=== PATIENT | male | born 1965 | race Caucasian/White ===

== ENCOUNTER 2017-08-29 11:51 | Observation (INO) | payer BC ==
[~2017-08-29] VITALS: Ht 177.8 cm; Wt 63.6 kg
[2017-08-29 11:53] VITALS: BP 141/79; PULSE 79; RESP 14; TEMP 98.6; O2SAT 97
[2017-08-29] MEDS ORDERED: SODIUM CHLORIDE 0.9% FLUSH 10 ML FLUSH IVF PRN (12:30)
[2017-08-29] MEDS ORDERED: SODIUM CHLOR 0.9% 1000 ML INJ 1,000 ML IV ONE (12:30)
[2017-08-29] MEDS ORDERED: PRIL20TA2 (12:54)
[2017-08-29] MEDS ORDERED: FLUT1INH INH (12:54)
[2017-08-29 13:23] LABS: AUTOMATED NEUTROPHIL # 3.2 TH/MM3 (1.8-7.7); BASOPHIL % 0.7 % (0.0-2.0); EOSINOPHIL # 0.1 TH/MM3 (0-0.4); EOSINOPHIL % 1.3 % (0.0-4.0); HEMATOCRIT 40.1 % (39.0-51.0); HEMOGLOBIN 13.8 GM/DL (13.0-17.0); LYMPH % 19.3 % (9.0-44.0); LYMPHOCYTE # 0.9 TH/MM3 (1.0-4.8); MEAN CELL VOLUME 89.5 FL (80.0-100.0); MEAN CORPUSCULAR HEMOGLOBIN 30.9 PG (27.0-34.0); MEAN CORPUSCULAR HGB CONC 34.5 % (32.0-36.0); MEAN PLATELET VOLUME 9.2 FL (7.0-11.0); MONO % 11.4 % (0.0-8.0); MONOCYTE # 0.5 TH/MM3 (0-0.9); NEUT % 67.3 % (16.0-70.0); PLATELET COUNT 206 TH/MM3 (150-450); RED BLOOD COUNT 4.48 MIL/MM3 (4.50-5.90); WHITE BLOOD COUNT 4.8 TH/MM3 (4.0-11.0)
[2017-08-29 13:36] LABS: PROTHROMBIN TIME - PATIENT 10.1 SEC (9.8-11.6)
[2017-08-29 13:41] LABS: ALBUMIN 4.2 GM/DL (3.4-5.0); ALT (GPT) 23 U/L (12-78); AST (GOT) 33 U/L (15-37); BICARBONATE 28.4 MEQ/L (21.0-32.0); BLOOD UREA NITROGEN 10 MG/DL (7-18); CALCIUM 8.9 MG/DL (8.5-10.1); CHLORIDE 99 MEQ/L (98-107); CREATININE 0.71 MG/DL (0.60-1.30); GLOMERULAR FILTRATION RATE 117 ML/MIN (>89); GLUCOSE,RANDOM 75 MG/DL (74-106); SODIUM (NA) 135 MEQ/L (136-145)
[2017-08-29 13:43] LABS: ALKALINE PHOSPHATASE 58 U/L (45-117); TOTAL BILIRUBIN ADULT 0.7 MG/DL (0.2-1.0); TOTAL PROTEIN 7.4 GM/DL (6.4-8.2)
--- NOTE | 2017-08-29 14:57 | RADRPT ---
EXAM DATE/TIME: 08/29/2017 13:58 [facility] COMPARISON: No previous studies available for comparison. INDICATIONS : Left hemianopia with bilateral vision loss. MEDICAL HISTORY : Chronic obstructive pulmonary disease. GERD SURGICAL HISTORY : Tonsillectomy. Hernia sx. ENCOUNTER: Initial ACUITY: 1 day PAIN SCORE: 2/10 LOCATION: Bilateral orbits TECHNIQUE: Multiplanar, multisequence MRI of the brain was performed without contrast. FINDINGS: CEREBRUM: The ventricles are normal for age. No evidence of midline shift, mass lesion, hemorrhage or acute in farction. No extraaxial fluid collections are seen. The pituitary gland and suprasellar cistern are normal in configuration. WHITE MATTER: No significant signal abnormalities are seen in the white matter. POSTERIOR FOSSA: The cerebellum and brainstem are intact. The 4th ventricle is midline. The cerebellopontine angle is unremarkable. The cerebellar tonsils are normal in position. DIFFUSION IMAGING: No focal areas of restricted diffusion are seen. No evidence of acute infarction. EXTRACRANIAL: The visualized portions of the orbits and paranasal sinuses are unremarkable. CONCLUSION: 1. Negative examination. Miah Forte MD on August 29, 2017 at 14:52 Board Certified Radiologist. This report was verified electronically.
--- NOTE | 2017-08-29 15:23 | PD ---
HPI Chief Complaint: Syncope/Near-Syncope Time Seen by Provider: 12:20 Travel History International Travel<30 days: No Contact w/Intl Traveler<30days: No Traveled to known affect area: No History of Present Illness HPI 52-year-old male presents emergency department complaining of left eye visual changes that started approximately 1030 this morning. States that he was sitting talking to his boss when this happened. Patient states that the episode lasted approximately 2 hours that was preceded by 'blurred vision' bilaterally. He describes this left eye visual change as a vertical line with black peripheral vision. States this has never happened before, denies headache or head trauma. States he may have COPD and takes Breo daily. He denies any other medical issues. Denies history of heart attack or stroke. He does wear corrective lenses. PFSH Past Medical History COPD: Yes Diabetes: No GERD: Yes Respiratory: Yes Tetanus Vaccination: > 5 Years Influenza Vaccination: No Past Surgical History Tonsillectomy: Yes Social History Alcohol Use: Yes (DAILY) Tobacco Use: Yes (1 PPD) Substance Use: No Allergies-Medications (Allergen,Severity, Reaction): Coded Allergies: No Known Allergies (Unverified , 08/29/17) Reported Meds & Prescriptions Reported Meds & Active Scripts Active Reported Prilosec (Omeprazole Magnesium) 20 Mg Tab Breo Ellipta Inh (Fluticasone/Vilanterol) 100-25 Mcg/Act Inh 1 Puff INH DAILY Use daily at the same time. Review of Systems Except as stated in HPI: all other systems reviewed are Neg Physical Exam Narrative GENERAL: Well-developed well-nourished no apparent distress SKIN: Focused skin assessment warm/dry. HEAD: Atraumatic. Normocephalic. EYES: Pupils equal and round. No scleral icterus. No injection or drainage. Mid gaze 2 beat horizontal nystagmus with EOMI to left and right ENT: No nasal bleeding or discharge. Mucous membranes pink and moist. NECK: Trachea midline. No JVD. CARDIOVASCULAR: Regular rate and rhythm. No murmur appreciated. RESPIRATORY: No accessory muscle use. Clear to auscultation. Breath sounds equal bilaterally. GASTROINTESTINAL: Abdomen soft, non-tender, nondistended. Hepatic and splenic margins not palpable. MUSCULOSKELETAL: No obvious deformities. No clubbing. No cyanosis. No edema. NEUROLOGICAL: Awake and alert. No obvious cranial nerve deficits. Motor grossly within normal limits. Normal speech. Negative pronator drift PSYCHIATRIC: Appropriate mood and affect; insight and judgment normal. Data Data Last Documented VS Vital Signs Date Time Temp Pulse Resp B/P (MAP) Pulse Ox O2 Delivery O2 Flow Rate FiO2 08/29/17 16:51 76 18 145/80 (101) 98 Room Air 08/29/17 11:53 98.6 Orders Orders Complete Blood Count With Diff (08/29/17 12:30) Comprehensive Metabolic Panel (08/29/17 12:30) Prothrombin Time / Inr (Pt) (08/29/17 12:30) Act Partial Throm Time (Ptt) (08/29/17 12:30) Ecg Monitoring (08/29/17 12:30) Iv Access Insert/Monitor (08/29/17 12:30) Oximetry (08/29/17 12:30) Sodium Chloride 0.9% Flush (Ns Flush) (08/29/17 12:30) Sodium Chlor 0.9% 1000 Ml Inj (Ns 1000 M (08/29/17 12:30) Mri Brain W/O Contrast (08/29/17 ) Electrocardiogram (08/29/17 ) Aspirin (Aspirin) (08/29/17 16:30) Admit Order (Ed Use Only) (08/29/17 16:30) Place In Observation (08/29/17 ) Code Status (08/29/17 17:20) Vital Signs (Adult) Q2HX12,Q4H (08/29/17 17:20) Nih Stroke Scale - Nihss .Daily (08/29/17 17:20) Neuro Checks Q2HX12,Q4H (08/29/17 17:20) Notify Dr: Other (08/29/17 17:20) Ot Request For Service (08/29/17 17:20) Pt Request For Service (08/29/17 17:20) Case Management Consult (08/29/17 ) Activity Oob Ad Puja (08/29/17 17:20) Nursing Bedside Swallow Assess .ONCE (08/29/17 17:20) Troponin I (08/29/17 17:20) Troponin I (08/29/17 23:20) Hemoglobin (Hgb) A1c (08/29/17 17:20) Lipid Profile (08/29/17 17:20) Us Carotid Arteries Comp Bilat (08/29/17 ) Mra Brain W/O Contrast (Cow) (08/29/17 ) Consult Neurology (08/29/17 ) Sodium Chloride 0.9% Flush (Ns Flush) (08/29/17 21:00) Sodium Chloride 0.9% Flush (Ns Flush) (08/29/17 17:30) Enalaprilat Inj (Vasotec Inj) (08/29/17 17:30) Aspirin Chew (Aspirin Chew) (08/30/17 09:00) Bedside Glucose CRUZ.CSUGAR (08/29/17 17:20) Claim Clerk / Telemetry CRUZ.Q8H (08/29/17 17:20) Diet Heart Healthy (08/29/17 Dinner) Scd Bilateral/Knee High CRUZ.QSHIFT (08/29/17 17:20) Labs Laboratory Tests Test 08/29/17 12:50 08/29/17 17:30 White Blood Count 4.8 TH/MM3 Red Blood Count 4.48 MIL/MM3 Hemoglobin 13.8 GM/DL Hematocrit 40.1 % Mean Corpuscular Volume 89.5 FL Mean Corpuscular Hemoglobin 30.9 PG Mean Corpuscular Hemoglobin Concent 34.5 % Red Cell Distribution Width 14.0 % Platelet Count 206 TH/MM3 Mean Platelet Volume 9.2 FL Neutrophils (%) (Auto) 67.3 % Lymphocytes (%) (Auto) 19.3 % Monocytes (%) (Auto) 11.4 % Eosinophils (%) (Auto) 1.3 % Basophils (%) (Auto) 0.7 % Neutrophils # (Auto) 3.2 TH/MM3 Lymphocytes # (Auto) 0.9 TH/MM3 Monocytes # (Auto) 0.5 TH/MM3 Eosinophils # (Auto) 0.1 TH/MM3 Basophils # (Auto) 0.0 TH/MM3 CBC Comment DIFF FINAL Differential Comment Prothrombin Time 10.1 SEC Prothromb Time International Ratio 1.0 RATIO Activated Partial Thromboplast Time 28.0 SEC Blood Urea Nitrogen 10 MG/DL Creatinine 0.71 MG/DL Random Glucose 75 MG/DL Total Protein 7.4 GM/DL Albumin 4.2 GM/DL Calcium Level 8.9 MG/DL Alkaline Phosphatase 58 U/L Aspartate Amino Transf (AST/SGOT) 33 U/L Alanine Aminotransferase (ALT/SGPT) 23 U/L Total Bilirubin 0.7 MG/DL Sodium Level 135 MEQ/L Potassium Level 3.9 MEQ/L Chloride Level 99 MEQ/L Carbon Dioxide Level 28.4 MEQ/L Anion Gap 8 MEQ/L Estimat Glomerular Filtration Rate 117 ML/MIN Troponin I LESS THAN 0.02 NG/ML Triglycerides Level 54 MG/DL Cholesterol Level 175 MG/DL LDL Cholesterol 88 MG/DL HDL Cholesterol 76.5 MG/DL Cholesterol/HDL Ratio 2.28 RATIO MDM Medical Decision Making Medical Screen Exam Complete: Yes Emergency Medical Condition: Yes Differential Diagnosis Left hemianopsia, retinal detachment, anxiety, Narrative Course 52-year-old male presents emergency department complaining of left eye visual changes that started approximately 1030 this morning. States that he was sitting talking to his boss when this happened. Patient states that the episode lasted approximately 2 hours that was preceded by 'blurred vision' bilaterally. He describes this left eye visual change as a vertical line with black peripheral vision. States this has never happened before, denies headache or head trauma. States he may have COPD and takes Breo daily. He denies any other medical issues. Denies history of heart attack or stroke. He does wear corrective lenses. Vital signs stable. Physical exam findings- EOMI, PERRLA. He does have a mid gaze to beat nystagmus bilaterally. Bilateral upper and lower extremities grade 5 out of 5, negative pronator drift, normal speech At the physical exam, patient was not complaining of peripheral vision loss or change. I discussed this case with my attending who agreed to a Brain MRI for evaluation. Laboratory Tests Test 08/29/17 12:50 White Blood Count 4.8 TH/MM3 Red Blood Count 4.48 MIL/MM3 Hemoglobin 13.8 GM/DL Hematocrit 40.1 % Mean Corpuscular Volume 89.5 FL Mean Corpuscular Hemoglobin 30.9 PG Mean Corpuscular Hemoglobin Concent 34.5 % Red Cell Distribution Width 14.0 % Platelet Count 206 TH/MM3 Mean Platelet Volume 9.2 FL Neutrophils (%) (Auto) 67.3 % Lymphocytes (%) (Auto) 19.3 % Monocytes (%) (Auto) 11.4 % Eosinophils (%) (Auto) 1.3 % Basophils (%) (Auto) 0.7 % Neutrophils # (Auto) 3.2 TH/MM3 Lymphocytes # (Auto) 0.9 TH/MM3 Monocytes # (Auto) 0.5 TH/MM3 Eosinophils # (Auto) 0.1 TH/MM3 Basophils # (Auto) 0.0 TH/MM3 CBC Comment DIFF FINAL Differential Comment Prothrombin Time 10.1 SEC Prothromb Time International Ratio 1.0 RATIO Activated Partial Thromboplast Time 28.0 SEC Blood Urea Nitrogen 10 MG/DL Creatinine 0.71 MG/DL Random Glucose 75 MG/DL Total Protein 7.4 GM/DL Albumin 4.2 GM/DL Calcium Level 8.9 MG/DL Alkaline Phosphatase 58 U/L Aspartate Amino Transf (AST/SGOT) 33 U/L Alanine Aminotransferase (ALT/SGPT) 23 U/L Total Bilirubin 0.7 MG/DL Sodium Level 135 MEQ/L Potassium Level 3.9 MEQ/L Chloride Level 99 MEQ/L Carbon Dioxide Level 28.4 MEQ/L Anion Gap 8 MEQ/L Estimat Glomerular Filtration Rate 117 ML/MIN Labs are unremarkable. MRI no acute process. Patient describing a left hemianopsia that it occurred for approximately 2 hours. At assessment, patient denies any symptoms. A call was placed to Dr. Castaneda to discuss this case and for dispo. He recommends an MRA, carotid ultrasound, lipid panel, and echocardiogram. ASA administered in the emergency department. Pt will be admitted for monitoring and neuro consult. Physician Communication Physician Communication I spoke with Dr. Castaneda who recommended and MRA, carotid ultrasound, echocardiogram, aspirin and lipids. He is concerned that there may have been a TIA and recommends a work up. Diagnosis Primary Impression: Hemianopia of left eye Additional Impression: TIA (transient ischemic attack) Qualified Codes: G45.8 - Other transient cerebral ischemic attacks and related syndromes Admitting Information Admitting Physician Requests: Admit Scripts Atorvastatin (Atorvastatin) 80 Mg Tab 80 MG PO HS for Cholesterol Management, #30 TAB 0 Refills Prov: Isabella Munroe MD R2 08/30/17 Aspirin (Px Aspirin) 325 Mg Tab 325 MG PO DAILY, #30 TAB Prov: Brayan Garcia MD R1 08/30/17 Condition: Stable Dena Cardenas Aug 29, 2017 15:23
[2017-08-29] MEDS ORDERED: ASPIRIN 325 MG TAB PO ONE (16:30)
--- NOTE | 2017-08-29 16:35 | HHI.HP ---
[facility] Service Family Medicine Primary Care Physician Harshil Olea MD Admission Diagnosis TIA, hemianopsia Diagnoses: International Travel<30 Days: No Contact w/Intl Traveler<30days: No Known Affected Area: No History of Present Illness Patient states that at 10 AM on the morning of presentation that he suddenly experienced L eye "shaking", L part of visual field in L eye went completely black, R part of visual field in L eye was blurry. Blurriness was coming and going in waves. Then experienced blurry vision in the R eye. These changes gradually improved but were present for 2 hours. At that time his vision returned to near baseline but with some persistent blurriness in the L eye. + dizziness during the initial episode, did not lose consciousness, no headaches, no n/v, SOB, CP. Denies aura preceding symptoms, denies urinary/bowel incontinence. Of note, he had flu-like symptoms, URI during the month of July but symptoms resolved after antibiotics (unsure which) and steroids. Has felt in normal state of health for last 2 weeks. Uses Breo inhaler daily, is supposed to be seeing neuro psych sales specialist for COPD workup. PCP started inhaler after patient complained of wheezing, SOB. Takes Prilosec for GERD but otherwise no known medical problems. Has never been told he has HTN, DM, HLD. Review of Systems Constitutional: DENIES: Fever, Weight loss, Chills Endocrine: DENIES: Polydipsia, Polyuria Eyes: COMPLAINS OF: Blurred vision, Vision loss, DENIES: Eye pain, Photosensitivity Ears, nose, mouth, throat: DENIES: Throat pain, Running Nose Respiratory: DENIES: Cough, Wheezing, Shortness of breath Cardiovascular: DENIES: Chest pain, Palpitations, Syncope, Lower Extremity Edema Gastrointestinal: DENIES: Abdominal pain, Black stools, Bloody stools, Constipation, Diarrhea, Nausea, Vomiting Genitourinary: DENIES: Hematuria, Dysuria Musculoskeletal: DENIES: Joint pain, Muscle aches Integumentary: COMPLAINS OF: Rash (had rash on face last week, resolved ) Hematologic/lymphatic: DENIES: Lymphadenopathy Neurologic: DENIES: Headache, Localized weakness, Seizures Past Family Social History Past Medical History Questionable COPD GERD Past Surgical History Tonsillectomy in childhood Inguinal hernia repair at age 12 Allergies: Coded Allergies: No Known Allergies (Unverified , 08/29/17) Family History Sister has CAD with 5 stents Father of lung cancer Heart problems in uncle Emphysema in mother Social History Lives at home with 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 SKIN: No rashes, ecchymoses or lesions. Cool and dry. HEAD: Atraumatic. Normocephalic. No temporal or scalp tenderness. EYES: Pupils equal round and reactive. Extraocular motions intact. No scleral icterus. No injection or drainage. Mid gaze 2 beat horizontal nystagmus noted bilaterally ENT: Nose without bleeding, purulent drainage or septal hematoma. Throat without erythema, tonsillar hypertrophy or exudate. Uvula midline. Airway patent. NECK: Trachea midline. No JVD or lymphadenopathy. Supple, nontender, no meningeal signs. CARDIOVASCULAR: Regular rate and rhythm without murmurs, gallops, or rubs. RESPIRATORY: Clear to auscultation. Breath sounds equal bilaterally. No wheezes , rales, or rhonchi. GASTROINTESTINAL: Abdomen soft, non-tender, nondistended. No hepato-splenomegaly , or palpable masses. No guarding. MUSCULOSKELETAL: Extremities without clubbing, cyanosis, or edema. No joint tenderness, effusion, or edema noted. No calf tenderness. Negative Homans sign bilaterally. NEUROLOGICAL: Awake and alert. Cranial nerves II through XII intact except for following findings: Mid gaze 2 beat horizontal nystagmus bilaterally, decreased acuity in the RLQ of L visual field, decreased sensation in the V2 branch of the L trigeminal nerve. Finger to nose and heel to lo exams within normal limits. Motor and sensory within normal limits and equal in bilateral upper and lower extremities. Five out of 5 muscle strength in all muscle groups. Deep tendon reflexes intact and equal bilaterally. Normal speech. Laboratory Laboratory Tests Test 08/29/17 12:50 White Blood Count 4.8 Red Blood Count 4.48 Hemoglobin 13.8 Hematocrit 40.1 Mean Corpuscular Volume 89.5 Mean Corpuscular Hemoglobin 30.9 Mean Corpuscular Hemoglobin Concent 34.5 Red Cell Distribution Width 14.0 Platelet Count 206 Mean Platelet Volume 9.2 Neutrophils (%) (Auto) 67.3 Lymphocytes (%) (Auto) 19.3 Monocytes (%) (Auto) 11.4 Eosinophils (%) (Auto) 1.3 Basophils (%) (Auto) 0.7 Neutrophils # (Auto) 3.2 Lymphocytes # (Auto) 0.9 Monocytes # (Auto) 0.5 Eosinophils # (Auto) 0.1 Basophils # (Auto) 0.0 CBC Comment DIFF FINAL Differential Comment Prothrombin Time 10.1 Prothromb Time International Ratio 1.0 Activated Partial Thromboplast Time 28.0 Blood Urea Nitrogen 10 Creatinine 0.71 Random Glucose 75 Total Protein 7.4 Albumin 4.2 Calcium Level 8.9 Alkaline Phosphatase 58 Aspartate Amino Transf (AST/SGOT) 33 Alanine Aminotransferase (ALT/SGPT) 23 Total Bilirubin 0.7 Sodium Level 135 Potassium Level 3.9 Chloride Level 99 Carbon Dioxide Level 28.4 Anion Gap 8 Estimat Glomerular Filtration Rate 117 Result Diagram: 08/29/17 1250 08/29/17 1250 Imaging Last 48 hours Impressions Brain MRI 08/29/17 0000 Signed Impressions: Service Date/Time: Tuesday, August 29, 2017 13:58 - CONCLUSION: 1. Negative examination. MD Mela Martinez VTE Risk Assessment Mela VTE Risk Assessment: No/Low Risk (score <= 1) Assessment and Plan Assessment and Plan 52 yo M with PMH of GERD, possible COPD presenting to ED with acute onset of L hemianopsia, dizziness and blurred vision that lasted roughly 2 hours on the day of presentation. MRI brain negative for stroke. Suspecting TIA. Neurology consult. Further workup pending. Admitting for observation. Code Status Full code Discussed Condition With Dr. Dixon Problem List: (1) TIA (transient ischemic attack) ICD Codes: G45.9 - Transient cerebral ischemic attack, unspecified Status: Acute Plan: -Symptoms first began 2 hrs prior to presentation -Vascular risk factors include h/o smoking, family history of CAD in sibling ( sister has 5 stents) -Pertinent PE findings include: Mid gaze 2 beat horizontal nystagmus bilaterally , decreased acuity in the RLQ of L visual field, decreased sensation in the V2 branch of the L trigeminal nerve -MRI brain stat to r/o ischemic stroke was negative -MRA brain and carotids ultrasound ordered. -EKG pending. Troponins pending -2D ECHO pending -Electrolytes within normal limits on admission -ABCD2 score of 3 (1 point for BP >140 systolic, 2 points for symptoms > 60 minutes) 2 day stroke risk: 1.0% 7 day stroke risk: 1.2% 90 day stroke risk: 3.1% -Aspirin 325 mg x1 now and then daily. -Lipid panel pending, consider starting atorvastatin daily. -Hemoglobin A1c pending -UA, UDS pending -Neuro checks q4 hrs. Telemetry. -Consult neurology, PT/OT and case management. -If pt passes bedside swallow, will allow for heart healthy diet. (2) Hemianopia of left eye ICD Codes: H53.462 - Homonymous bilateral field defects, left side Status: Acute Plan: Patient describing acute onset of hemianopia of the left half of the visual field in the left eye. Patient also described blurry vision in both eyes, gradually resolved over the next 1-2 hours Suspecting TIA as MRI brain was negative, see workup as above (3) GERD (gastroesophageal reflux disease) ICD Codes: K21.9 - Gastro-esophageal reflux disease without esophagitis Plan: Has a known history of GERD Takes omeprazole daily Pantoprazole 40 mg by mouth daily (4) COPD (chronic obstructive pulmonary disease) ICD Codes: J44.9 - Chronic obstructive pulmonary disease, unspecified Plan: Does not have formal testing for COPD, but primary doctor has prescribed Breo inhaler daily Significant smoking history, 30 pack years Continuing home Breo inhaler (5) FEN Plan: No IV fluids at this time Heart healthy diet Replete electrolytes as needed SCDs for DVT prophylaxis Problem Qualifiers (1) TIA (transient ischemic attack): Qualified Codes: G45.8 - Other transient cerebral ischemic attacks and related syndromes Brayan Garcia MD R1 Aug 29, 2017 16:34
[2017-08-29 16:51] VITALS: BP 145/80; PULSE 76; RESP 18; O2SAT 98
[2017-08-29] MEDS ORDERED: SODIUM CHLORIDE 0.9% FLUSH 10 ML FLUSH IV FLUSH PRN (17:30)
[2017-08-29] MEDS ORDERED: ENALAPRILAT 1.25 MG/ML VIAL IV PUSH PRN (17:30)
[2017-08-29] MEDS ORDERED: LORazepam 1 MG TAB PO PRN (17:45)
[2017-08-29] MEDS ORDERED: LORazepam 2 MG/ML VIAL IV PUSH PRN ×4 (17:45)
[2017-08-29] MEDS ORDERED: LORazepam 2 MG TAB PO PRN (17:45)
[2017-08-29] MEDS ORDERED: FLUMAZENIL 0.5 MG/5 ML VIAL IV PUSH PRN (17:45)
[2017-08-29] MEDS ORDERED: ENOXAPARIN SODIUM 40 MG/0.4 ML SYRINGE SQ SCH (18:00)
[2017-08-29 18:09] LABS: CHOLESTEROL 175 MG/DL (120-200)
[2017-08-29 18:11] LABS: CHOLESTEROL/ HDL RATIO 2.28 RATIO; HDL CHOLESTEROL 76.5 MG/DL (40.0-60.0); LDL CHOLESTEROL 88 MG/DL (0-99); TRIGLYCERIDES 54 MG/DL (42-150); TROPONIN I LESS THAN 0.02 NG/ML (0.02-0.05)
[2017-08-29 18:44] VITALS: BP 133/73; PULSE 74; RESP 18; O2SAT 97
--- NOTE | 2017-08-29 19:35 | RADRPT ---
EXAM DATE/TIME: 08/29/2017 18:18 [facility] COMPARISON: No previous studies available for comparison. INDICATIONS : Stroke. MEDICAL HISTORY : Chronic obstructive pulmonary disease. Gastroesophageal reflux disease. SURGICAL HISTORY : Tonsillectomy. Hernia sx. ENCOUNTER: Subsequent ACUITY: 1 day PAIN SCORE: 2/10 LOCATION: Bilateral orbits. Please note a normal MRA of the brain does not entirely exclude the possibility of a small aneurysm, nor the possibility of distal intracranial vessel disease. TECHNIQUE: 3D time of flight MRA was performed. Source images, multiplanar STS MIP, and 3D volume MIP reconstru ctions were reviewed. FINDINGS: There is excellent visualization of the major intracranial arteries out to the second-order branch ve ssels. There is no evidence for aneurysm, vessel truncation or stenosis, and no evidence for vascula r malformation. CONCLUSION: Normal examination for a patient of this age. Jigar Desouza MD on August 29, 2017 at 19:31 Board Certified Radiologist. This report was verified electronically.
--- NOTE | 2017-08-29 19:36 | RADRPT ---
EXAM DATE/TIME: 08/29/2017 18:47 [facility] COMPARISON: No previous studies available for comparison. INDICATIONS : Cerebrovascular accident. MEDICAL HISTORY : Chronic obstructive pulmonary disease. Gastroesophageal reflux disease. Tobacco use. SURGICAL HISTORY : Tonsillectomy. ENCOUNTER: Initial ACUITY: 1 day PAIN SCORE: 0/10 LOCATION: Bilateral neck PEAK SYSTOLIC VELOCITIES (cm/sec): ICA/CCA RATIO: Right: 0.9 Left: 1.3 ICA: Right: 83.1 Left: 120.5 CCA: Right: 91.4 Left: 96.3 ECA: Right: 92.7 Left: 101.1 VERTEBRAL: Right: 49.4 antegrade Left: 56.4 antegrade Elevated flow velocities and ICA/CCA ratios have been found to correlate with increased degrees of vessel stenosis, calculated as percentage of diameter relative to a normal segment of distal ICA/CCA FINDINGS: RIGHT CAROTID: No significant stenosis is visualized. The waveforms are within normal limits. LEFT CAROTID: No significant stenosis is visualized. The waveforms are within normal limits. VERTEBRAL ARTERIES: Antegrade flow is seen in both vertebral arteries. MISCELLANEOUS: None. CONCLUSION: 1. Minimal plaque bilaterally. No hemodynamically significant stenosis. Jigar Desouza MD on August 29, 2017 at 19:33 Board Certified Radiologist. This report was verified electronically.
[2017-08-29] MEDS: SODIUM CHLORIDE 0.9% FLUSH 10 ML FLUSH IV FLUSH SCH (21:24)
[2017-08-29 21:56] VITALS: BP 116/61; PULSE 73; RESP 18; TEMP 97.9; O2SAT 99
[2017-08-29 22:13] LABS: TROPONIN I LESS THAN 0.02 NG/ML (0.02-0.05)
[2017-08-29 22:27] LABS: HEMOGLOBIN A1C 5.5 % (4.3-6.0)
[2017-08-29 23:25] VITALS: BP_SYST 129; BP_SYST 130; BP_SYST 136; BP_DIAS 69; BP_DIAS 71; BP_DIAS 80; PULSE 69; RESP 17; TEMP 98.2; O2SAT 94
[2017-08-30] VITALS (8 sets, daily range): BP systolic 108–139; BP diastolic 61–74; PULSE 56–79; RESP 17–18; TEMP 97.6–98.4; O2SAT 95–97
[2017-08-30 03:22] LABS: BILIRUBIN, URINE NEG (NEG); BLOOD, URINE NEG (NEG); GLUCOSE,URINE NEG (NEG); KETONE, URINE TRACE mg/dL (NEG); NITRITE,URINE NEG (NEG); PH, URINE 7.5 (5.0-8.5); URINE COLOR YELLOW (YELLW/STRAW); URINE LEUKOCYTE ESTERASE NEG (NEG)
--- NOTE | 2017-08-30 06:33 | MB ---
cc: ARIANNA LAMAR DATE OF CONSULTATION 08/29/2017 REASON FOR CONSULTATION TIA. HISTORY OF PRESENT ILLNESS Mr. Saenz is a pleasant 52-year-old man who had sudden onset of difficulty seeing off to the left side. He lost part of the visual field in the left eye and felt the left eye shaking. It cleared up after several minutes. He also experienced blurring of the right eye. This lasted about 2 hours and resolved back to baseline. He did have some initial dizziness as well, denies any headache or other neurologic complaints. No focal weakness or numbness. PAST MEDICAL HISTORY He has GERD, otherwise healthy except for COPD. MEDICATIONS AT HOME He takes an inhaler. ALLERGIES None known. SOCIAL HISTORY Drinks four to six beers daily. He does smoke. No drug use. NEUROLOGIC EXAMINATION Blood pressure 133/73, pulse 74, respirations 18, temperature 98 degrees. Higher cortical functions normal. Cranial nerves intact. Vision normal. Motor exam - no focal deficits. Reflexes are symmetric. MRI OF THE BRAIN Normal. LABORATORY DATA White count 4800, hemoglobin 13.8, hematocrit 40%, platelet count 206,000. PT 10.1, INR 1, APTT 28. Sodium is 135, potassium 3.9, chloride 99, CO2 28.4, BUN is 10, creatinine 0.71, GFR is 117, glucose 75. Hemoglobin A1c is pending. AST 20, ALT 23, triglycerides 54, LDL 88, HDL cholesterol 76.5. EKG Sinus rhythm. IMPRESSION TIA. Suspect this might have been an occipital lobe event because he did have blurred vision in both eyes, although cannot entirely rule out a left retinal artery event such as amaurosis fugax. RECOMMENDATIONS 1. Would recommend starting aspirin 325 mg daily. 2. Monitor cardiac telemetry, rule out atrial fibrillation. 3. Also check echocardiogram as well as a carotid ultrasound. 4. We will also get an MRA of the brain to rule out any basilar artery disease. 5. If the above workup is negative and there is no sign of A-fib any he is stable overnight on aspirin, the patient could go home tomorrow from the neurologic standpoint on aspirin 325 mg daily with followup with me in the office in 2 weeks. MD KELLY Guzman/SHAWN /7:00 PM /6:24 AM
[2017-08-30] MEDS ORDERED: ASA325 PO (06:52)
--- NOTE | 2017-08-30 07:48 | HHI.FPPN ---
Subjective Remarks Temo Saenz is a 52yo gentleman with medical history significant for alcohol abuse admitted for left eye hemianopsia concerning for possible TIA. For further details, please see resident H&P dated 08/29/17. Overnight, there were no new concerns. This morning, he reports vision is improved. He denies headache, weakness. ROS: Per resident H&P dated 08/29/17. Vision improved. No headache, weakness. All other systems reviewed are negative. PMH/PSxH/SocHx/FamHx: Per resident H&P dated 08/29/17. Significant for: possible COPD, GERD, alcohol abuse (4-5 beers daily without h/o withdrawal). Tonsillectomy and hernia repair as a child. Sister with CAD; father with lung CA. . 30 pack year smoking history. Alcohol as mentioned previously. No recreational drug use. Objective Vitals Vital Signs Date Time Temp Pulse Resp B/P (MAP) Pulse Ox O2 Delivery O2 Flow Rate FiO2 08/30/17 05:59 97.9 68 17 129/74 (92) 95 08/30/17 04:01 77 08/30/17 03:45 98.4 61 17 139/74 (95) 96 08/30/17 01:45 97.6 63 17 126/65 (85) 97 08/30/17 00:02 67 08/29/17 23:25 98.2 69 17 129/69 (89) 94 130/71 (90) 136/80 (98) 08/29/17 21:56 97.9 73 18 116/61 (79) 99 08/29/17 18:44 74 18 133/73 (93) 97 Room Air 08/29/17 16:51 76 18 145/80 (101) 98 Room Air 08/29/17 12:50 74 18 99 Room Air 08/29/17 11:53 98.6 79 14 141/79 (99) 97 I/O 08/29/17 08/29/17 08/29/17 08/30/17 08/30/17 08/30/17 07:00 15:00 23:00 07:00 15:00 23:00 Intake Total 1000 ml 480 ml Balance 1000 ml 480 ml Intake Oral 480 ml IV Total 1000 ml # Voids 1 Result Diagram: 08/29/17 1250 08/29/17 1250 Objective Remarks Per resident H&P dated 08/29/17. Significant for: 2 beat nystagmus in both eyes with horizontal motions. Visual calderón intact throughout (resolved deficit as per initial Physical Exam). No pronator drift. Muscle strength in tact. A/P Assessment and Plan 52 yo M with PMH of GERD, possible COPD presenting to ED with acute onset of L hemianopsia, dizziness and blurred vision that lasted roughly 2 hours on the day of presentation. MRI brain negative for stroke. Suspecting TIA. Neurology consult. Further workup pending. Admitting for observation. Discharge Planning Discharge today, with ASA and statin. Attending Attestation Patient seen, examined, and discussed with resident team. Problem List: (1) TIA (transient ischemic attack) ICD Codes: G45.9 - Transient cerebral ischemic attack, unspecified Status: Resolved Plan: -Symptoms first began 2 hrs prior to presentation. -Vascular risk factors include h/o smoking, family history of CAD in sibling ( sister has 5 stents) -Pertinent PE findings include: Mid gaze 2 beat horizontal nystagmus bilaterally , decreased acuity in the RLQ of L visual field, decreased sensation in the V2 branch of the L trigeminal nerve. These have since resolved. -MRI brain stat to r/o ischemic stroke was negative -MRA brain and carotids ultrasound are reassuring. -EKG and troponin are reassuring -2D ECHO results reviewed. -ABCD2 score of 3 (1 point for BP >140 systolic, 2 points for symptoms > 60 minutes) 2 day stroke risk: 1.0% 7 day stroke risk: 1.2% 90 day stroke risk: 3.1% -Aspirin 325 mg x1 now and then daily. -Lipid panel reviewed; start statin due to TIA/vascular disease. -Hemoglobin A1c 5.5% -UA, UDS are negative -Neuro checks q4 hrs. Telemetry. -Consult neurology - appreciate recs. (2) Hemianopia of left eye ICD Codes: H53.462 - Homonymous bilateral field defects, left side Status: Acute Plan: Patient describing acute onset of hemianopia of the left half of the visual field in the left eye. Patient also described blurry vision in both eyes, gradually resolved over the next 1-2 hours Suspecting TIA as MRI brain was negative, see workup as above. Appreciate neurology recs. (3) GERD (gastroesophageal reflux disease) ICD Codes: K21.9 - Gastro-esophageal reflux disease without esophagitis Status: Chronic Plan: Has a known history of GERD Takes omeprazole daily at home. Pantoprazole 40 mg by mouth daily while in hospital. (4) COPD (chronic obstructive pulmonary disease) ICD Codes: J44.9 - Chronic obstructive pulmonary disease, unspecified Status: Chronic Plan: Does not have formal testing for COPD, but primary doctor has prescribed Breo inhaler daily Significant smoking history, 30 pack years Continuing home Breo inhaler. Encouraged smoking cessation. (5) Alcohol abuse ICD Codes: F10.10 - Alcohol abuse, uncomplicated Status: Chronic Plan: Encouraged alcohol cessation. No evidence of withdrawal. Problem Qualifiers (1) TIA (transient ischemic attack): Qualified Codes: G45.8 - Other transient cerebral ischemic attacks and related syndromes (2) GERD (gastroesophageal reflux disease): Qualified Codes: K21.9 - Gastro-esophageal reflux disease without esophagitis Luzma Muñoz MD Aug 30, 2017 07:48
[2017-08-30] MEDS ORDERED: PANTOPRAZOLE SOD 40 MG DELAYED RELEASE TAB PO SCH (09:00)
[2017-08-30] MEDS ORDERED: FLUTICASONE 100 MCG/VILANTEROL 25 MCG INHALER INH SCH (09:00)
[2017-08-30] MEDS ORDERED: ASPIRIN 325 MG TAB PO SCH (09:00)
[2017-08-30] MEDS ORDERED: ASPIRIN 81 MG CHEW TAB PO SCH (09:00)
--- NOTE | 2017-08-30 09:03 | HHI.DCPOC ---
Discharge Care Plan Diagnosis: (1) COPD (chronic obstructive pulmonary disease) (2) TIA (transient ischemic attack) (3) Hemianopia of left eye Goals to Promote Your Health * To prevent worsening of your condition and complications * To maintain your health at the optimal level Directions to Meet Your Goals Take your medications as prescribed Follow your dietary instruction Follow activity as directed Keep your appointments as scheduled Take your immunizations and boosters as scheduled If your symptoms worsen call your PCP, if no PCP go to Urgent Care Center or Emergency Room Smoking is Dangerous to Your Health. Avoid second hand smoke Call the 24-hour hour crisis hotline for domestic abuse at Isabella Munroe MD R2 Aug 30, 2017 09:03
[2017-08-30] MEDS ORDERED: ATOR80TA45 PO (09:04)
[2017-08-30] MEDS: SODIUM CHLORIDE 0.9% FLUSH 10 ML FLUSH IV FLUSH SCH (09:07)
--- NOTE | 2017-08-30 15:13 | ECHRPT ---
Indication: CONCLUSIONS Normal left ventricular size and wall thickness. The left ventricular systolic function is normal wi th an estimated ejection fraction in the range of 60-65%. Normal wall motion. Structurally normal mitral valve. Trace mitral valve regurgitation. Structurally normal tricuspid valve. There is trace tricuspid valve regurgitation. BP: / HR: Rhythm: MEASUREMENTS (Male / Female) Normal Values Technical Quality:Technically difficult study 2D ECHO LV Diastolic Diameter PLAX 4.9 cm 4.2 - 5.9 / 3.9 - 5.3 cm LV Systolic Diameter PLAX 3.7 cm IVS Diastolic Thickness 0.8 cm 0.6 - 1.0 / 0.6 - 0.9 cm LVPW Diastolic Thickness 0.8 cm 0.6 - 1.0 / 0.6 - 0.9 cm LV Relative Wall Thickness 0.3 RV Internal Dim ED PLAX 2.7 cm M-MODE Aortic Root Diameter MM 4.0 cm LA Systolic Diameter MM 3.8 cm LA Ao Ratio MM 0.9 AV Cusp Separation MM 2.3 cm DOPPLER Mitral E Point Velocity 67.6 cm/s Mitral A Point Velocity 69.1 cm/s Mitral E to A Ratio 1.0 LV E' Lateral Velocity 16.3 cm/s Mitral E to LV E' Lateral Ratio 4.1 LV E' Septal Velocity 12.1 cm/s Mitral E to LV E' Septal Ratio 5.6 TR Peak Velocity 280.0 cm/s TR Peak Gradient 31.4 mmHg Right Atrial Pressure 10.0 mmHg Pulmonary Artery Systolic Pressu 41.4 mmHg Right Ventricular Systolic Press 41.4 mmHg FINDINGS LEFT VENTRICLE Normal left ventricular size and wall thickness. The left ventricular systolic function is normal wi th an estimated ejection fraction in the range of 60-65%. Normal wall motion. RIGHT VENTRICLE Normal right ventricular size and systolic function. LEFT ATRIUM The left atrial size is normal. RIGHT ATRIUM The right atrial size is normal. ATRIAL SEPTUM Normal atrial septal thickness without atrial level shunting by limited color doppler interrogation. AORTA The aortic root and proximal ascending aorta are normal in size on limited imaging. MITRAL VALVE Structurally normal mitral valve. Trace mitral valve regurgitation. AORTIC VALVE Trileaflet aortic valve. No aortic valve stenosis or regurgitation. TRICUSPID VALVE Structurally normal tricuspid valve. There is trace tricuspid valve regurgitation. PULMONARY VALVE No pulmonary valve regurgitation or stenosis. VESSELS The inferior vena cava is normal in size. PERICARDIUM No pericardial effusion. Lionel Ochoa MD Edited by: Vizibility CV Chipper Operator (Electronically Signed) Final Date:30 August 2017 14:21 Amended: 30 August 2017 15:12
--- NOTE | 2017-08-30 18:26 | EKG ---
Date Performed: 08/29/2017 Time Performed: 16:24:01 PTAGE: 52 years EKG: Sinus rhythm BORDERLINE RIGHT AXIS DEVIATION BORDERLINE ECG NO PREVIOUS TRACING DOCTOR: Yves Emery Interpretating Date/Time 08/30/2017 18:25:07
== END 2017-08-30 15:54 | disposition home or self-care (01) ==
LOC: NEPC 11:51 → NEDA 16:33 → UNDOADMIN 16:33 → NEDA 17:30 → INTOOBSV 17:30 → NEPGCP 21:55 → NEDA 21:55
PROVIDERS: ADMIT Family Medicine; ATTEND Family Medicine
DX: G45.9 Transient cerebral ischemic attack, unspecified (principal); H53.462 Homonymous bilateral field defects, left side; J44.9 Chronic obstructive pulmonary disease, unspecified; K21.9 Gastro-esophageal reflux disease without esophagitis; H55.09 Other forms of nystagmus; F10.10 Alcohol abuse, uncomplicated; F17.200 Nicotine dependence, unspecified, uncomplicated; Z82.49 Family history of ischemic heart disease and other diseases of the circulatory system
CPT/HCPCS: 70544; 70551; 80053; 80061; 80307; 81001; 82948; 83036; 84484; 85025; 85610; 85730; 93005; 93306; 93880; 96360; 97162; 97165; 99285; G0378; G8987; G8988; G8989; J7030